=== PATIENT | female | born 1970 | race Caucasian/White ===

== ENCOUNTER 2021-07-07 10:20 | Day surgery (SDC) | payer BC ==
[2021-07-05 12:56] VITALS: BMI 33.3
[~2021-07-07 10:20] MED LIST: LACTATED RINGERS 1,000 ML IV SCH
[2021-07-07 11:23] VITALS: TEMP 97.6
[2021-07-07 11:33] LABS: Glucose,Whole Blood 104 mg/dL (75-99)
[2021-07-07] MEDS ORDERED: PROPOFOL 10 MG/ML 20 ML VIAL IV ONE (12:21)
[2021-07-07] MEDS ORDERED: LIDOCAINE 1% INJ 10MG/ML (20 ML MDV) ONE (12:21)
--- NOTE | 2021-07-07 12:31 | P.PCN ---
Date of Procedure: 07/07/21 Procedure(s) Performed: BRIEF HISTORY: Patient is a 50-year-old, pleasant, white female scheduled for an upper endoscopy as a part of evaluation of epigastric pain, severe heartburn and intermittent nausea vomiting for the last 2 months duration. He is presently on omeprazole 20 mg twice daily, Zofran as needed and Carafate 1 g twice daily and severe symptomatic. PROCEDURE PERFORMED: Esophagogastroduodenoscopy with biopsy. PREOPERATIVE DIAGNOSIS: Epigastric pain and GERD of several months duration. IV sedation per anesthesia. PROCEDURE: After informed consent was obtained, the patient was brought into the endoscopy unit. IV sedation was administered by Anesthesia under continuous monitoring. Initially the Olympus GIF-140 video endoscope was inserted into the mouth. Esophagus intubated without any difficulty. It was gradually advanced into the stomach and duodenum and carefully examined. The bulb and the second part of the duodenum patchy areas of erythema consistent with duodenitis and biopsies were done from this area. The scope at this time was withdrawn to the stomach, adequately insufflated with air, and upon careful examination, mucosa of the antrum, had mild gastritis and biopsies were done from this area. The body, cardia and the fundus appeared normal. The scope was then withdrawn into the esophagus. The GE junction was located at 39 cm from the incisors. The esophagus appeared normal. There were no erosions or ulcerations seen , biopsies were done from the distal esophagus and the patient tolerated the procedure well. IMPRESSION: 1. Patchy areas of erythema in the duodenum status post biopsies. 2. Mild antral gastritis but no evidence of peptic ulcer disease. 3. No evidence of esophagitis or Courtney's esophagus RECOMMENDATIONS: The findings of this examination were discussed with the patient as well as a family. She was advised to continue with omeprazole 20 mg twice daily and follow antireflux measures. Increase Carafate 1 times daily.
[2021-07-07 12:47] VITALS: RESP 16
[2021-07-07 12:48] VITALS: BP 122/77; PULSE 83
== END 2021-07-07 13:28 | disposition home or self-care (01) ==
LOC: ORWHC2ENDO 10:20
PROVIDERS: ATTEND Internal Medicine Gastroenterology
DX: K29.50 Unspecified chronic gastritis without bleeding (principal); I10 Essential (primary) hypertension; J45.909 Unspecified asthma, uncomplicated; E11.9 Type 2 diabetes mellitus without complications; E07.9 Disorder of thyroid, unspecified; K21.9 Gastro-esophageal reflux disease without esophagitis; Z79.84 Long term (current) use of oral hypoglycemic drugs; Z79.899 Other long term (current) drug therapy; Z88.2 Allergy status to sulfonamides; Z88.8 Allergy status to other drugs, medicaments and biological substances
CPT/HCPCS: 81025; 88305; 43239; J2001; J2704